=== PATIENT | female | born 1970 | race Caucasian/White ===

== ENCOUNTER 2025-07-31 10:02 | Outpatient (CLI) | payer MEDICAID ==
[2025-07-31 11:06] LABS: CHOL/HDL RATIO 4.1 (0.00-4.99); CREATININE 0.75 MG/DL (0.40-0.90); LDL CHOLESTEROL 121 MG/DL (50-100); TOTAL CARBON DIOXIDE 27.8 MMOL/L (24-32); eGFR 80 ML/MIN
== END 2025-07-31 23:59 | disposition home or self-care (01) ==
LOC: RAD 10:02
PROVIDERS: ATTEND Student in an Organized Health Care Education/Training Program
DX: Z13.1 Encounter for screening for diabetes mellitus (principal); Z13.220 Encounter for screening for lipoid disorders
CPT/HCPCS: 36415; 80053; 80061; 83036